=== PATIENT | male | born 1995 | race Caucasian/White ===

== ENCOUNTER 2019-04-20 17:09 | Emergency (ER) | payer OTHER ==
[2019-04-20] MEDS ORDERED: IBUPROFEN 600 MG TABLET (FP) PO ONE ×2 (17:13→17:18)
--- NOTE | 2019-04-20 17:25 | PDOC ---
Documentation entered by Miguelina Rosas SCRIBE, acting as scribe for Stacie Moody DO. Stacie Moody DO: This documentation has been prepared by the Ralph gagnon Joy, SCRIBE, under my direction and personally reviewed by me in its entirety. I confirm that the documentation accurately reflects all work, treatment, procedures, and medical decision making performed by me. History of Present Illness - General Chief Complaint: Pain Stated Complaint: LEFT FOOT PAIN History Source: Patient - History of Present Illness Initial Comments: 04/20/19 17:29 The patient is a 23 year old male with significant past medical history of asthma who presents to the ED today with left heel pain s/p fall. As per patient , over a month ago he injured the same left foot at the gym while working out and had sharp pain initially. Patient endorses that his foot has been sore but not painful since. When the patient tripped and fell today at 2:30 PM he reports a sharp achy pain pain on the left heel and achilles. The patient reports that today it hurts more than normal. The patient denies numbness or tingling. All systems are reviewed and negative except as noted in the HPI. Allergies: NKA Surgeries: Tonsillectomy Social History: Nonsmoker, nondrinker Past History - Past Medical History Allergies/Adverse Reactions: Allergies Allergy/AdvReac Type Severity Reaction Status Date / Time No Known Allergies Allergy Verified 04/20/19 17:10 Home Medications: Ambulatory Orders NK [No Known Home Medication] 04/20/19 Asthma: Yes - Immunization History Immunization Up to Date: Yes - Psycho Social/Smoking Cessation Hx Smoking Status: No Smoking History: Never smoked Have you smoked in the past 12 months: No Number of Cigarettes Smoked Daily: 0 Hx Alcohol Use: No Substance Use Type: None Review of Systems - Review of Systems Able to Perform ROS?: Yes Comments:: 04/20/19 17:30 GENERAL/CONSTITUTIONAL: No fever or chills. No weakness. HEAD, EYES, EARS, NOSE AND THROAT: No change in vision. No ear pain or discharge. No sore throat. CARDIOVASCULAR: No chest pain or shortness of breath. RESPIRATORY: No cough, wheezing, or hemoptysis. MUSCULOSKELETAL: +Left heel/foot pain. No neck or back pain. SKIN: No rash NEUROLOGIC: No headache, vertigo, loss of consciousness, or change in strength/ sensation. ALLERGIC/IMMUNOLOGIC: No hives or skin allergy. *Physical Exam - Vital Signs Last Vital Signs Temp Pulse Resp BP Pulse Ox 98 F 80 16 140/95 100 04/20/19 17:10 04/20/19 17:10 04/20/19 17:10 04/20/19 17:10 04/20/19 17:10 - Physical Exam General Appearance: Yes: Nourished, Appropriately Dressed. No: Apparent Distress HEENT: positive: EOMI, Normal Voice Neck: positive: Supple Respiratory/Chest: positive: Lungs Clear, Normal Breath Sounds. negative: Respiratory Distress Cardiovascular: positive: Regular Rhythm, Regular Rate, S1, S2 Gastrointestinal/Abdominal: positive: Soft, Other (obese). negative: Guarding, Rebound, Tenderness Musculoskeletal: positive: Normal Inspection Extremity: positive: Normal Capillary Refill, Normal Inspection, Other (pulses intact, neurovasc intact, TTP posterior medial malleolus, ttp with palpation of the calcaneus L foot, no ttp along 5th metatarsal, FROM of the ankle and foot without ttp, no swelling, no warmth, no ecchymosis, no erythema). negative: Swelling, Calf Tenderness Integumentary: positive: Normal Color, Dry, Warm Neurologic: positive: Fully Oriented, Alert, Normal Mood/Affect, Motor Strength 5/5. negative: Sensory Deficit ED Treatment Course - RADIOLOGY Radiology Studies Ordered: Category Date Time Status ANKLE & FOOT-LEFT* [RAD] Stat Radiology 04/20/19 17:12 Ordered - Medications Given in the ED: ED Medications Discontinued Medications Generic Name Dose Route Start Last Admin Trade Name Jesika PRN Reason Stop Dose Admin Ibuprofen 600 mg 04/20/19 17:13 04/20/19 17:20 Motrin - PO 04/20/19 17:14 600 mg ONCE ONE Administration Medical Decision Making - Medical Decision Making 04/20/19 17:23 a/p: 23yo male with L foot and ankle pain after inversion injury earlier today -rolled ankle inversion while wearing work boots -pain to calcaneus -FROM of the ankle, but ttp posterior medial malleolus -achilles intact -will send for xray -pt ambulated into the ER with a slight limp secondary to pain -motrin for pain -neg garcia test 04/20/19 17:49 no acute fx seen will give latisha wrap and surgical shoe for comfort stable for dc to home and follow up with ortho if pain continues Discharge - Discharge Information Problems reviewed: Yes Clinical Impression/Diagnosis: Left foot pain Condition: Stable Disposition: HOME - Admission No - Follow up/Referral Referrals: Yeison Keith MD [Staff Physician] - Saúl Lux MD [Staff Physician] - Clint Brunner DO [Staff Physician] - - Patient Discharge Instructions Patient Printed Discharge Instructions: DI for Foot Pain Additional Instructions: Please take tylenol or motrin as needed for pain. Please apply ice 20 min on and 20 min off as needed for pain. Please keep the foot elevated. Please wear the surgical shoe for comfort. Please make an appointment to see the orthopedist if your pain continues. Please also make an appointment to see your PMD. Please return to the ED with any further concerns or complaints. - Post Discharge Activity
[2019-04-20 17:53] VITALS: BP 140/95; PULSE 80; TEMP 98; BMI 39.9
== END 2019-04-20 18:07 | disposition home or self-care (01) ==
LOC: FER 17:09
DX: M79.672 Pain in left foot (principal); J45.909 Unspecified asthma, uncomplicated
CPT/HCPCS: 73610-TC-LT-FY; 73630-TC-LT; 99282-25

== ENCOUNTER 2020-10-02 19:27 | Emergency (ER) | payer OTHER ==
[2020-10-02] MEDS ORDERED: ACETAMINOPHEN 500 MG TABLET (FP) PO ONE (19:31)
[2020-10-02 19:34] VITALS: BP 151/100; PULSE 79; TEMP 98.1; BMI 39.1
[2020-10-02] MEDS ORDERED: ACETAMINOPHEN 325 MG TABLET (FP) ONE (19:34)
== END 2020-10-02 21:08 | disposition home or self-care (01) ==
LOC: FER 19:27
DX: M25.512 Pain in left shoulder (principal)
CPT/HCPCS: 73030-TC-LT-FY; 99284-25

== ENCOUNTER 2020-10-12 20:04 | Emergency (ER) | payer OTHER ==
[2020-10-12 20:25] VITALS: BP 143/80; PULSE 104; TEMP 98; BMI 40.7
== END 2020-10-12 23:10 | disposition home or self-care (01) ==
LOC: JERFT 20:04
PROC: 0HQGXZZ Repair Left Hand Skin, External Approach (ICD-10-PCS; principal; 2020-10-12)
DX: S61.215A Laceration without foreign body of left ring finger without damage to nail, initial encounter (principal)
CPT/HCPCS: 99282-25

== ENCOUNTER 2022-08-05 17:43 | Emergency (ER) | payer OTHER ==
[2022-08-05 18:02] VITALS: BP 142/89; PULSE 85; RESP 20; TEMP 98.3; BMI 39.7
== END 2022-08-05 18:17 | disposition home or self-care (01) ==
LOC: FER 17:43
DX: R21 Rash and other nonspecific skin eruption (principal); L23.7 Allergic contact dermatitis due to plants, except food
CPT/HCPCS: 99283-25

== ENCOUNTER 2023-07-10 17:55 | Inpatient (IN) | payer OTHER ==
[2023-07-10 18:22] VITALS: BMI 39.4
[2023-07-10] MEDS ORDERED: ACETAMINOPHEN INJECTION 100 ML IVPB ONE (19:52)
[2023-07-10] MEDS ORDERED: ONDANSETRON 4 MG/2 ML VIAL ONE (19:52)
[2023-07-10] MEDS: SODIUM CHLORIDE 0.9% 500 ML INFUS.BAG IV ONE (20:14)
[2023-07-10] MEDS: ACETAMINOPHEN 1000 MG/100 ML BAG IVPB ONE (20:14)
[2023-07-10] MEDS: ONDANSETRON 4 MG/2 ML VIAL IVPUSH ONE (20:15)
[2023-07-10 20:25] LABS: BASO % 0.1 % (0-2.0); EOS % 0.1 % (0-4.5); HEMATOCRIT 43.6 % (35.4-49); HEMOGLOBIN 14.5 GM/dL (11.7-16.9); LYMPH % 6.8 % (8-40); MCH 24.5 pg (25.7-33.7); MCHC 33.2 g/dl (32.0-35.9); MEAN CELL VOLUME 73.8 fl (80-96); MONO % 4.3 % (3.8-10.2); NEUT % 88.7 % (42.8-82.8); PLATELET COUNT 220 10^3/uL (134-434); RBC 5.92 M/mm3 (4.00-5.60); RDW 14.5 % (11.9-15.9); WHITE BLOOD COUNT 14.5 K/mm3 (4.0-10.0)
[2023-07-10] MEDS ORDERED: FAMOTIDINE 20 MG/50 ML IVPB 20 MG/50 ML MG IVPB ONE (20:25)
[2023-07-10] MEDS: FAMOTIDINE 20 MG/50 ML IVPB 20 MG/50 ML MG IVPB ONE (20:31)
[2023-07-10 20:49] LABS: POTASSIUM 3.2 mmol/L (3.5-5.1)
[2023-07-10 20:51] LABS: CALCIUM 9.3 mg/dL (8.5-10.1)
[2023-07-10 20:52] LABS: ALBUMIN 4.4 g/dl (3.4-5.0); BLOOD UREA NITROGEN 12.9 mg/dL (7-18); MAGNESIUM 1.8 mg/dL (1.8-2.4)
[2023-07-10 20:54] LABS: PHOSPHOROUS 3.2 mg/dL (2.5-4.9)
[2023-07-10 20:55] LABS: CREATININE 1.1 mg/dL (0.55-1.3)
[2023-07-10 20:56] LABS: BILIRUBIN,TOTAL 0.5 mg/dL (0.2-1); TOT PROT 7.8 g/dl (6.4-8.2)
[2023-07-10 21:48] LABS: HIV INTERPRETATION NEGATIVE (NEGATIVE)
[2023-07-11] MEDS ORDERED: ACETAMINOPHEN 325 MG TABLET (FP) PO PRN (00:26)
[2023-07-11 00:48] LABS: EPI CELLS 13 /uL (0-25.1); HYALINE CASTS 2 /uL (0-3.1); URINE APPEARANCE CLEAR; URINE BACTERIA 5 /uL (0-1359); URINE BILIRUBIN NEGATIVE (NEGATIVE); URINE COLOR YELLOW; URINE GLUCOSE (UA) NEGATIVE (NEGATIVE); URINE KETONE 2+ (NEGATIVE); URINE LEUK ESTERASE NEGATIVE (NEGATIVE); URINE NITRITE NEGATIVE (NEGATIVE); URINE PROTEIN 1+ (NEGATIVE); URINE RBC 25 /uL (0-23.9); URINE UROBILINOGEN 0.2 mg/dL (0.2-1.0); URINE WBC 15 /uL (0-25.8)
[2023-07-11] MEDS: POTASSIUM CHLORIDE TABS 20 MEQ TABLET.ER (FP) PO ONE (03:50)
[2023-07-11 07:59] LABS: BASO % 0.3 % (0-2.0); EOS % 0.3 % (0-4.5); HEMATOCRIT 41.6 % (35.4-49); HEMOGLOBIN 13.8 GM/dL (11.7-16.9); MCH 24.7 pg (25.7-33.7); MCHC 33.1 g/dl (32.0-35.9); MEAN CELL VOLUME 74.6 fl (80-96); MEAN PLT VOLUME 9.9 fl (7.5-11.1); MONO % 7.5 % (3.8-10.2); NEUT % 65.9 % (42.8-82.8); PLATELET COUNT 203 10^3/uL (134-434); RBC 5.58 M/mm3 (4.00-5.60); RDW 14.5 % (11.9-15.9); WHITE BLOOD COUNT 9.5 K/mm3 (4.0-10.0)
[2023-07-11 08:29] LABS: POTASSIUM 3.4 mmol/L (3.5-5.1)
[2023-07-11 08:40] LABS: BLOOD UREA NITROGEN 8.5 mg/dL (7-18); MAGNESIUM 1.9 mg/dL (1.8-2.4)
[2023-07-11 08:42] LABS: ALBUMIN 3.8 g/dl (3.4-5.0)
[2023-07-11 08:44] LABS: CREATININE 0.8 mg/dL (0.55-1.3)
[2023-07-11 08:45] LABS: BILIRUBIN,TOTAL 0.6 mg/dL (0.2-1); PHOSPHOROUS 2.8 mg/dL (2.5-4.9); TOT PROT 7.1 g/dl (6.4-8.2)
[2023-07-11] MEDS: DOXYCYCLINE INJECTION 100 MG in DEXTROSE 5%-WATER 100 ML IVPB SCH (09:32)
[2023-07-11] MEDS: MAGNESIUM SULF 50% (8.12 MEQ/2 ML-1 GM VIAL) IVPB ONE (09:33)
[2023-07-11] MEDS: CEFTRIAXONE 1 GM in DEXTROSE 5%-WATER - 50 ML IVPB SCH (09:33)
[2023-07-11] MEDS: ENOXAPARIN NA (PORCINE) 40 MG/0.4 ML DISP.SYRIN SQ SCH (09:34)
[2023-07-11] MEDS: OSELTAMIVIR PHOSPHATE 75 MG CAPSULE PO SCH (09:59)
[2023-07-11] MEDS: AZITHROMYCIN IVPB 500 MG/250 ML BAG IVPB SCH (11:33)
[2023-07-11 15:52] VITALS: RESP 18
[2023-07-12 09:58] LABS: HEMOGLOBIN 13.3 GM/dL (11.7-16.9); MCH 24.3 pg (25.7-33.7); MCHC 32.5 g/dl (32.0-35.9); MEAN CELL VOLUME 74.8 fl (80-96); MEAN PLT VOLUME 9.9 fl (7.5-11.1); PLATELET COUNT 202 10^3/uL (134-434); RBC 5.49 M/mm3 (4.00-5.60); RDW 14.3 % (11.9-15.9); WHITE BLOOD COUNT 5.4 K/mm3 (4.0-10.0)
[2023-07-13 11:07] VITALS: BP 134/72; PULSE 84; TEMP 98.3
[2023-07-13] MEDS: ALBUTEROL SO4 2.5/IPRATROPIUM 0.5 INH SOL 3 ML VIAL.NEB. NEB ONE (11:21)
== END 2023-07-13 12:00 | disposition home or self-care (01) | DRG 139 ==
LOC: JER 17:55 → JERBED 23:34 → J6S 07-11 01:47
PROVIDERS: ADMIT Internal Medicine; ATTEND Internal Medicine
DX: J10.00 Influenza due to other identified influenza virus with unspecified type of pneumonia (principal); J45.909 Unspecified asthma, uncomplicated; R94.31 Abnormal electrocardiogram [ECG] [EKG]; N13.30 Unspecified hydronephrosis; M54.9 Dorsalgia, unspecified; E78.5 Hyperlipidemia, unspecified; J18.9 Pneumonia, unspecified organism
CPT/HCPCS: 0241U-QW; 36415; 71045-TC-FY; 74177-TC; 80053; 81003; 83036; 83690; 83735; 84100; 85025; 85027; 87086; 87389; 93005; 93010; 94640; 99285-25; J0131

== ENCOUNTER 2023-07-15 10:31 | Emergency (ER) | payer OTHER ==
[2023-07-15 10:50] VITALS: BP 145/91; PULSE 78; RESP 18; TEMP 98; BMI 40.7
[2023-07-15] MEDS ORDERED: ONDANSETRON *ODT* 4 MG TABLET ONE (11:49)
[2023-07-15] MEDS: ONDANSETRON *ODT* 4 MG TABLET SL ONE (12:07)
[2023-07-15 12:13] LABS: HEMATOCRIT 41.4 % (35.4-49); HEMOGLOBIN 13.7 GM/dL (11.7-16.9); MCH 24.5 pg (25.7-33.7); MEAN CELL VOLUME 74.2 fl (80-96); MEAN PLT VOLUME 9.4 fl (7.5-11.1); MONO % 7.2 % (3.8-10.2); NEUT % 53.8 % (42.8-82.8); PLATELET COUNT 333 10^3/uL (134-434); RBC 5.58 M/mm3 (4.00-5.60); RDW 14.3 % (11.9-15.9); WHITE BLOOD COUNT 8.1 K/mm3 (4.0-10.0)
[2023-07-15 12:29] LABS: POTASSIUM 3.9 mmol/L (3.5-5.1)
[2023-07-15 12:30] LABS: CALCIUM 9.5 mg/dL (8.5-10.1)
[2023-07-15 12:31] LABS: MAGNESIUM 1.9 mg/dL (1.8-2.4)
[2023-07-15 12:34] LABS: CREATININE 0.7 mg/dL (0.55-1.3)
[2023-07-15 12:37] LABS: BLOOD UREA NITROGEN 10.3 mg/dL (7-18)
== END 2023-07-15 12:42 | disposition home or self-care (01) ==
LOC: JER 10:31
DX: R11.2 Nausea with vomiting, unspecified (principal); R10.811 Right upper quadrant abdominal tenderness; R10.812 Left upper quadrant abdominal tenderness
CPT/HCPCS: 36415; 80048; 83690; 83735; 85025; 93005; 93010; 99284-25; Q0162